=== PATIENT | female | born 1940 | race Caucasian/White ===

== ENCOUNTER → 2017-04-01 | Outpatient (CLI) | payer MEDICARE, OTHER | LOC: KOH-I 10:56 | DX: M51.26 Other intervertebral disc displacement, lumbar region (principal); M43.16 Spondylolisthesis, lumbar region; M51.37 Other intervertebral disc degeneration, lumbosacral region | CPT/HCPCS: 72110 ==

== ENCOUNTER → 2020-12-18 | Outpatient (CLI) | payer MEDICARE, OTHER ==
[~2020-12-18] VITALS: Ht 165.1 cm; Wt 59.9 kg
[~2020-12-18] MED LIST: ANTIVERT 12.512.5 MG PO; CENTRUM SILVER1 EAC4 PO; FLAX OIL1000 MG PO; KRILL OIL500 MG PO; LEVOXYL100 MCG PO; LIPITOR TAB 1010 MG PO; VITAMIN D250000 UNIT PO; ZOLOFT25 MG PO
== END ==
LOC: OPSV 12:52
DX: M81.0 Age-related osteoporosis without current pathological fracture (principal)
CPT/HCPCS: 96372

== ENCOUNTER → 2021-06-26 | Outpatient (CLI) | payer MEDICARE, OTHER ==
[~2021-06-26] VITALS: Ht 165.1 cm; Wt 59.9 kg
== END ==
LOC: OPSV 09:59
DX: M81.0 Age-related osteoporosis without current pathological fracture (principal)
CPT/HCPCS: 96372

== ENCOUNTER → 2022-02-05 | Outpatient (CLI) | payer MEDICARE, OTHER ==
[~2022-02-05] VITALS: Ht 160 cm; Wt 61.7 kg
== END ==
LOC: OPSV 01-08 15:00
DX: M81.0 Age-related osteoporosis without current pathological fracture (principal)
CPT/HCPCS: 96372